=== PATIENT | female | born 1960 | race Two or more races ===

== ENCOUNTER 2023-09-28 03:47 | Inpatient (IN) | payer MEDICAID ==
[~2023-09-28] VITALS: Ht 152.4 cm; Wt 56.8 kg
[2023-09-28 04:41] LABS: BASOPHILS # (AUTO) 0.1 X10'3 (0-0.2); BASOPHILS % (AUTO) 1.1 % (0-1); EOSINOPHILS # (AUTO) 0.1 X10'3 (0-0.9); EOSINOPHILS % (AUTO) 1.2 % (0-6); HEMATOCRIT 28.5 % (35.0-45.0); HEMOGLOBIN 9.3 g/dl (12.0-16.0); LYMPHOCYTES # (AUTO) 1.9 X10'3 (1.1-4.8); LYMPHOCYTES % (AUTO) 22.7 % (21-51); MEAN CORPUSCULAR HGB CONC 32.7 g/dL (33.0-36.5); MEAN CORPUSCULAR VOLUME 85.5 FL (78-98); MEAN PLATELET VOLUME 8.7 FL (7.4-10.4); MONOCYTES # (AUTO) 0.5 X10'3 (0-0.9); MONOCYTES % (AUTO) 5.7 % (2-12); NEUTROPHILS # (AUTO) 5.9 X10'3 (1.8-7.7); NEUTROPHILS % (AUTO) 69.3 % (42-75); PLATELET COUNT 249 X10'3 (140-440); RED BLOOD COUNT 3.33 X10'6 (4.20-5.60); WHITE BLOOD COUNT 8.4 X10'3 (4.5-11.0)
[2023-09-28 04:48] LABS: D-DIMER 4.29 MG/L FEU (0-0.50)
[2023-09-28 04:52] LABS: ALANINE AMINOTRANSFERASE 26 U/L (12-78); ALBUMIN 2.5 G/DL (3.4-5.0); ALBUMIN/GLOBULIN RATIO 0.5 (1.1-1.5); ALKALINE PHOSPHATASE 150 IU/L (46-116); ANION GAP 8 (8-16); ASPARTATE AMINO TRANSFERASE 22 U/L (10-37); BILIRUBIN,TOTAL 0.2 MG/DL (0.1-1.0); BLOOD UREA NITROGEN 29 MG/DL (7-18); BUN/CREATININE RATIO 23.8 (10.0-20.0); CALCIUM 8.5 MG/DL (8.5-10.1); CHLORIDE 107 MMOL/L (99-107); CREATININE 1.22 MG/DL (0.40-0.90); GLUCOSE 155 MG/DL (70-104); POTASSIUM 5.2 MMOL/L (3.5-5.1); SODIUM 139 MMOL/L (135-145); TOTAL CARBON DIOXIDE 24.4 MMOL/L (24-32); TOTAL PROTEIN 7.6 G/DL (6.4-8.2); eCRCL 37 ML/MIN; eGFR 45 ML/MIN
[2023-09-28 04:59] LABS: PRO BRAIN NATRIURETIC PEPTIDE 4151 PG/ML (0-125)
[2023-09-28] MEDS ORDERED: iohexol 350MG/ML 100ml bottle IV ONE (05:42)
[2023-09-28] MEDS: MESSAGE TO NURSING PO ONE (06:55)
[2023-09-28] MEDS: furosemide 10 MG/1 ML 10ml inj IV ONE (10:19)
[2023-09-28] MEDS: aspirin 325mg tablet PO ONE (10:22)
[2023-09-28] MEDS: hydrALAZINE 20mg/ml inj. IV ONE (10:22)
[2023-09-28] MEDS: nitroGLYCERIN 1gm ointment UD TP ONE (10:22)
[2023-09-28] MEDS ORDERED: magnesium 4gm in 100ml NS 100 ML IV PRN (10:50)
[2023-09-28] MEDS ORDERED: magnesium hydroxide 30ml (MOM) UD suspension PO PRN (10:50)
[2023-09-28] MEDS ORDERED: magnesium 2GM in 50ml NS 50 ML IV PRN (10:50)
[2023-09-28] MEDS ORDERED: ondansetron/PF 4mg/2ml inj IV PRN (10:50)
[2023-09-28] MEDS ORDERED: magnesium Cl slow-release 64mg tablet PO PRN (10:50)
[2023-09-28] MEDS ORDERED: potassium Cl 20 mEq SR tablet PO PRN (10:50)
[2023-09-28] MEDS ORDERED: potassium Cl 40MEQ/1/2NS 520ml 520 ML IV PRN (10:50)
[2023-09-28] MEDS ORDERED: mag hydrox/Alum hydrox/simeth 30ml oral suspension PO PRN (10:50)
[2023-09-28] MEDS ORDERED: acetaminophen 325mg tablet PO PRN ×2 (10:50)
[2023-09-28] MEDS ORDERED: hydrALAZINE 20mg/ml inj. IV PRN ×2 (10:55→21:05)
[2023-09-28 11:26] LABS: HEMOGLOBIN A1C 7.9 % (4.5-6.2)
[2023-09-28 14:00] LABS: BILIRUBIN,URINE NEGATIVE (Neg); CLARITY,URINE CLEAR (Clear); COLOR,URINE STRAW (Yellow); GLUCOSE, URINE NEGATIVE (Neg); KETONES,URINE NEGATIVE (Neg); LEUKOCYTE ESTERASE ,URINE NEGATIVE (Neg); NITRITES, URINE NEGATIVE (Neg); OCCULT BLOOD,URINE TRACE-INTACT (Neg); PROTEIN,URINE 30 mg/dl (Neg); UROBILINOGEN,URINE 0.2 E.U/dL (0.2-1.0)
[2023-09-28 14:02] LABS: UA COLLECTION TYPE CLN CATCH MIDSTREAM
[2023-09-28 14:07] LABS: BACTERIA,URINE FEW /HPF (Neg); MUCUS STRANDS NONE SEEN /LPF (Neg); RBC,URINE 0-2 /HPF (0-2); SQUAMOUS EPITHELIAL CELL,UR FEW /LPF (FEW); WBC,URINE NONE SEEN /HPF (0-4)
[2023-09-28] MEDS ORDERED: dextrose 50%-water 50ml dispensing syringe IV PRN ×2 (16:45)
[2023-09-28] MEDS ORDERED: DEXTROSE 15 GM of carb/4 tabs (each vial/BOTTLE has 4 tablets) PO PRN ×2 (16:45)
[2023-09-28] MEDS: MESSAGE TO PHARMACY PO ONE (16:45)
[2023-09-28] MEDS ORDERED: INSULIN LISPRO 100 UNIT/ML INSULN.PEN MULTI-DOSE SQ SCH (16:45)
[2023-09-28] MEDS ORDERED: glucagon, human recombinant 1mg kit SUBCUT PRN (16:45)
[2023-09-28 19:50] VITALS: BP 191/85; PULSE 91; RESP 16; TEMP 98.2; O2SAT 94
[2023-09-28] MEDS: K and/or MAG REPLACEMENT MC SCH (20:00)
[2023-09-28] MEDS ORDERED: HYDR25TA5 PO (20:50)
[2023-09-28] MEDS ORDERED: SITA1TAB6 PO (20:51)
[2023-09-28] MEDS ORDERED: LISI40TA13 PO (20:52)
[2023-09-28] MEDS: insulin glargine (Lantus) pen - multi-dose SQ SCH (21:00)
[2023-09-28 21:15] VITALS: BP 176/82; PULSE 89; O2SAT 97
[2023-09-28] MEDS: furosemide 10 MG/1 ML 10ml inj IV SCH (21:22)
[2023-09-28] MEDS: heparin, porcine 5000 units/ml vial SQ SCH (21:26)
[2023-09-28 22:00] VITALS: BP 136/85; PULSE 88; RESP 16; TEMP 98.7; O2SAT 96
[2023-09-29 06:23] LABS: ALBUMIN 2.2 G/DL (3.4-5.0); ANION GAP 10 (8-16); BLOOD UREA NITROGEN 26 MG/DL (7-18); BUN/CREATININE RATIO 20.6 (10.0-20.0); CALCIUM 8.9 MG/DL (8.5-10.1); CHLORIDE 106 MMOL/L (99-107); CHOL/HDL RATIO 2.4 (0.00-4.99); CHOLESTEROL 168 MG/DL (0-200); CREATININE 1.26 MG/DL (0.40-0.90); GLUCOSE 144 MG/DL (70-104); HDL CHOLESTEROL 70 MG/DL (35-60); LDL CHOLESTEROL 76 MG/DL (50-100); PHOSPHORUS 5.3 MG/DL (2.3-4.5); POTASSIUM 3.8 MMOL/L (3.5-5.1); SODIUM 141 MMOL/L (135-145); TOTAL CARBON DIOXIDE 25.2 MMOL/L (24-32); TRIGLYCERIDES 115 MG/DL (20-135); eCRCL 33 ML/MIN; eGFR 43 ML/MIN
[2023-09-29 06:24] LABS: BASOPHILS # (AUTO) 0.1 X10'3 (0-0.2); EOSINOPHILS # (AUTO) 0.1 X10'3 (0-0.9); EOSINOPHILS % (AUTO) 1.1 % (0-6); HEMATOCRIT 26.9 % (35.0-45.0); HEMOGLOBIN 8.9 g/dl (12.0-16.0); LYMPHOCYTES # (AUTO) 1.6 X10'3 (1.1-4.8); LYMPHOCYTES % (AUTO) 28.2 % (21-51); MEAN CORPUSCULAR HEMOGLOBIN 28.5 PG (27.0-31.0); MEAN CORPUSCULAR HGB CONC 33.1 g/dL (33.0-36.5); MEAN CORPUSCULAR VOLUME 85.8 FL (78-98); MEAN PLATELET VOLUME 8.8 FL (7.4-10.4); MONOCYTES # (AUTO) 0.4 X10'3 (0-0.9); MONOCYTES % (AUTO) 6.9 % (2-12); NEUTROPHILS # (AUTO) 3.6 X10'3 (1.8-7.7); NEUTROPHILS % (AUTO) 62.8 % (42-75); PLATELET COUNT 234 X10'3 (140-440); RED BLOOD COUNT 3.13 X10'6 (4.20-5.60); RED CELL DISTRIBUTION WIDTH 14.7 % (11.5-14.5); WHITE BLOOD COUNT 5.7 X10'3 (4.5-11.0)
[2023-09-29 06:52] VITALS: BP 156/84; PULSE 93; RESP 15; TEMP 98.3; O2SAT 96
[2023-09-29] MEDS ORDERED: hydrALAZINE 20mg/ml inj. IV PRN (07:45)
[2023-09-29] MEDS: HYDROchlorothiazide 25mg tablet PO SCH (08:24)
[2023-09-29] MEDS: lisinopril 20mg tablet PO SCH (08:25)
[2023-09-29] MEDS: cloNIDine 0.1 mg tablet PO ONE (10:58)
[2023-09-29 11:04] VITALS: BP 206/98; PULSE 96; RESP 16; TEMP 98.4; O2SAT 95
[2023-09-29] MEDS: FLU VACC QS2023-24(6MOS UP)/PF 60 MCG/0.5 ML SYRINGE IM ONE (12:54)
[2023-09-29 18:00] VITALS: BP 181/84; PULSE 94; RESP 16; TEMP 98; O2SAT 97
[2023-09-29 20:00] VITALS: BP 140/80; PULSE 85
[2023-09-29 22:00] VITALS: BP 166/76; PULSE 73; RESP 15; TEMP 98; O2SAT 96
[2023-09-30 06:00] VITALS: BP 152/72; PULSE 74; RESP 15; TEMP 98.1; O2SAT 95
[2023-09-30] MEDS: labetalol 100mg tablet PO SCH (07:17)
[2023-09-30 07:46] LABS: BASOPHILS % (AUTO) 0.6 % (0-1); EOSINOPHILS # (AUTO) 0.1 X10'3 (0-0.9); EOSINOPHILS % (AUTO) 1.5 % (0-6); HEMATOCRIT 26.9 % (35.0-45.0); HEMOGLOBIN 9.1 g/dl (12.0-16.0); LYMPHOCYTES # (AUTO) 1.9 X10'3 (1.1-4.8); LYMPHOCYTES % (AUTO) 31.8 % (21-51); MEAN CORPUSCULAR HEMOGLOBIN 28.6 PG (27.0-31.0); MEAN CORPUSCULAR HGB CONC 33.7 g/dL (33.0-36.5); MEAN CORPUSCULAR VOLUME 85.1 FL (78-98); MEAN PLATELET VOLUME 8.7 FL (7.4-10.4); MONOCYTES # (AUTO) 0.6 X10'3 (0-0.9); MONOCYTES % (AUTO) 10.1 % (2-12); NEUTROPHILS # (AUTO) 3.4 X10'3 (1.8-7.7); PLATELET COUNT 236 X10'3 (140-440); RED BLOOD COUNT 3.17 X10'6 (4.20-5.60); RED CELL DISTRIBUTION WIDTH 14.5 % (11.5-14.5); WHITE BLOOD COUNT 6.1 X10'3 (4.5-11.0)
[2023-09-30 08:18] VITALS: RESP 16; O2SAT 98
[2023-09-30 08:20] LABS: ALBUMIN 2.1 G/DL (3.4-5.0); ANION GAP 5 (8-16); BLOOD UREA NITROGEN 22 MG/DL (7-18); BUN/CREATININE RATIO 14.3 (10.0-20.0); CALCIUM 8.2 MG/DL (8.5-10.1); CHLORIDE 101 MMOL/L (99-107); CREATININE 1.54 MG/DL (0.40-0.90); GLUCOSE 102 MG/DL (70-104); PHOSPHORUS 5.5 MG/DL (2.3-4.5); POTASSIUM 3.4 MMOL/L (3.5-5.1); SODIUM 136 MMOL/L (135-145); TOTAL CARBON DIOXIDE 30.4 MMOL/L (24-32); eCRCL 27 ML/MIN; eGFR 34 ML/MIN
[2023-09-30 08:55] VITALS: RESP 18
[2023-09-30 10:00] VITALS: BP 141/61; PULSE 77; RESP 16; TEMP 98; O2SAT 98
[2023-09-30] MEDS: potassium Cl 20 mEq SR tablet PO PRN (10:33)
[2023-09-30 11:20] VITALS: BP 157/71; PULSE 79; RESP 18; O2SAT 95
[2023-09-30] MEDS ORDERED: LABE100T8 PO (11:30)
[2023-09-30] MEDS ORDERED: FURO-150 PO (11:30)
== END 2023-09-30 14:40 | disposition home or self-care (01) | DRG 194 ==
LOC: ER 03:50 → ED HOLD 10:53 → ORTHO 4S 19:35
PROVIDERS: ADMIT Internal Medicine; ATTEND Internal Medicine
DX: I13.0 Hypertensive heart and chronic kidney disease with heart failure and stage 1 through stage 4 chronic kidney disease, or unspecified chronic kidney disease (principal); N17.0 Acute kidney failure with tubular necrosis; I31.39 Other pericardial effusion (noninflammatory); I16.0 Hypertensive urgency; D64.9 Anemia, unspecified; L80 Vitiligo; E11.22 Type 2 diabetes mellitus with diabetic chronic kidney disease; Z79.84 Long term (current) use of oral hypoglycemic drugs; I50.33 Acute on chronic diastolic (congestive) heart failure; N18.30 Chronic kidney disease, stage 3 unspecified; Z79.899 Other long term (current) drug therapy
CPT/HCPCS: 36415; 71045; 71275; 80048; 80053; 80061; 81001; 82948; 83036; 83605; 83735; 83880; 84100; 84484; 85025; 85379; 85651; 86038; 87040; 87081; 90686; 93005; 93306; 96374; 96375; 97161; 97530; 99285; A6212; A6258; G0378; J0360; J1644; J1815; J1940; J3490; Q9967

== ENCOUNTER 2024-03-25 16:58 | Inpatient (IN) | payer MEDICAID ==
[~2024-03-25] VITALS: Ht 152.4 cm; Wt 60.0 kg
[~2024-03-25 16:58] MED LIST: FURO-150 PO; LABE100T8 PO; LISI40TA13 PO; SITA1TAB6 PO
[2024-03-25 18:11] LABS: BASOPHILS # (AUTO) 0.1 X10'3 (0-0.2); BASOPHILS % (AUTO) 1.1 % (0-1); EOSINOPHILS # (AUTO) 0.1 X10'3 (0-0.9); EOSINOPHILS % (AUTO) 1.7 % (0-6); HEMATOCRIT 24.3 % (35.0-45.0); LYMPHOCYTES % (AUTO) 18.9 % (21-51); MEAN CORPUSCULAR HEMOGLOBIN 29.7 PG (27.0-31.0); MEAN CORPUSCULAR HGB CONC 32.9 g/dL (33.0-36.5); MEAN CORPUSCULAR VOLUME 90.2 FL (78-98); MEAN PLATELET VOLUME 8.2 FL (7.4-10.4); MONOCYTES # (AUTO) 0.5 X10'3 (0-0.9); MONOCYTES % (AUTO) 9.6 % (2-12); NEUTROPHILS # (AUTO) 3.7 X10'3 (1.8-7.7); NEUTROPHILS % (AUTO) 68.7 % (42-75); PLATELET COUNT 256 X10'3 (140-440); RED BLOOD COUNT 2.69 X10'6 (4.20-5.60); RED CELL DISTRIBUTION WIDTH 15.3 % (11.5-14.5); WHITE BLOOD COUNT 5.3 X10'3 (4.5-11.0)
[2024-03-25 18:29] LABS: ALANINE AMINOTRANSFERASE 57 U/L (12-78); ALBUMIN/GLOBULIN RATIO 0.6 (1.1-1.5); ALKALINE PHOSPHATASE 242 IU/L (46-116); ANION GAP 11 (8-16); ASPARTATE AMINO TRANSFERASE 30 U/L (10-37); BILIRUBIN,TOTAL 0.3 MG/DL (0.1-1.0); BLOOD UREA NITROGEN 45 MG/DL (7-18); BUN/CREATININE RATIO 17.6 (10.0-20.0); CALCIUM 8.4 MG/DL (8.5-10.1); CHLORIDE 101 MMOL/L (99-107); CREATININE 2.56 MG/DL (0.40-0.90); FREE T4 (FREE THYROXINE) 0.84 NG/DL (0.73-1.40); GLUCOSE 131 MG/DL (70-104); PRO BRAIN NATRIURETIC PEPTIDE 10367 PG/ML (0-125); SODIUM 130 MMOL/L (135-145); THYROID STIMULATING HORMONE 5.87 ulU/ml (0.34-4.50); TOTAL CARBON DIOXIDE 17.7 MMOL/L (24-32); eCRCL 16 ML/MIN; eGFR 19 ML/MIN
[2024-03-25 18:34] LABS: POTASSIUM 6.3 MMOL/L (3.5-5.1)
[2024-03-25 18:36] LABS: APTT 32 SECONDS (22-32); PROTHROMBIN TIME 10.4 SECONDS (9.0-12.0)
[2024-03-25] MEDS: CALCIUM GLUC 1gm/50ml NACL,iso 50 ML IV PRN (20:04)
[2024-03-25] MEDS ORDERED: potassium Cl 40MEQ/1/2NS 520ml 520 ML IV PRN (20:05)
[2024-03-25] MEDS ORDERED: potassium Cl 20 mEq SR tablet PO PRN ×2 (20:05)
[2024-03-25] MEDS ORDERED: magnesium Cl slow-release 64mg tablet PO PRN (20:05)
[2024-03-25] MEDS ORDERED: magnesium hydroxide 30ml (MOM) UD suspension PO PRN (20:05)
[2024-03-25] MEDS ORDERED: magnesium sulf-water 2g/50mL 50 ML IV PRN (20:05)
[2024-03-25] MEDS ORDERED: magnesium sulf-water 4G/100mL 100 ML IV PRN (20:05)
[2024-03-25] MEDS ORDERED: ondansetron/PF 4mg/2ml inj IV PRN (20:05)
[2024-03-25] MEDS ORDERED: acetaminophen 325mg tablet PO PRN (20:05)
[2024-03-25] MEDS ORDERED: mag hydrox/Alum hydrox/simeth 30ml oral suspension PO PRN (20:05)
[2024-03-25] MEDS: normal saline 1000ml 1,000 ML IV ONE ×2 (20:07)
[2024-03-25] MEDS ORDERED: nitroGLYCERIN 0.4mg SUBLingual tab SL PRN (20:20)
[2024-03-25] MEDS ORDERED: aminophylline 250mg/10ml inj. IV PRN (20:20)
[2024-03-25] MEDS ORDERED: metoprolol tartrate 1mg/ml inj IV PRN (20:20)
[2024-03-25 20:25] LABS: MAGNESIUM 2.8 MG/DL (1.5-2.4); PHOSPHORUS 6.2 MG/DL (2.3-4.5)
[2024-03-25 20:37] LABS: HEMOGLOBIN A1C 6.4 % (4.5-6.2)
[2024-03-25] MEDS: dextrose 50%-water 50ml dispensing syringe IV ONE (20:57)
[2024-03-25] MEDS: SODIUM ZIRCONIUM CYCLOSILICATE 10 GM POWD.PACK PO ONE (20:57)
[2024-03-25] MEDS: insulin regular, human 10 units/0.1 ml syringe IV ONE (21:00)
[2024-03-25] MEDS ORDERED: glucagon, human recombinant 1mg kit SUBCUT PRN (21:10)
[2024-03-25] MEDS ORDERED: DEXTROSE 15 GM of carb/4 tabs (each vial/BOTTLE has 4 tablets) PO PRN ×2 (21:10)
[2024-03-25] MEDS ORDERED: dextrose 50%-water 50ml dispensing syringe IV PRN (21:10)
[2024-03-25] MEDS ORDERED: LISI10TA27 PO (21:20)
[2024-03-25 21:35] LABS: BILIRUBIN,URINE NEGATIVE (Neg); CLARITY,URINE CLEAR (Clear); COLOR,URINE YELLOW (Yellow); GLUCOSE, URINE 100 mg/dl (Neg); KETONES,URINE NEGATIVE (Neg); LEUKOCYTE ESTERASE ,URINE NEGATIVE (Neg); NITRITES, URINE NEGATIVE (Neg); OCCULT BLOOD,URINE SMALL (Neg); PH,URINE 5.5 (4.8-8.0); PROTEIN,URINE 100 mg/dl (Neg); UROBILINOGEN,URINE 0.2 E.U/dL (0.2-1.0)
[2024-03-25 21:41] LABS: UA COLLECTION TYPE CLN CATCH MIDSTREAM
[2024-03-25 21:44] LABS: AMORPHOUS URATES 1+; BACTERIA,URINE NONE SEEN /HPF (Neg); MUCUS STRANDS NONE SEEN /LPF (Neg); SQUAMOUS EPITHELIAL CELL,UR NONE SEEN /LPF (FEW); WBC,URINE 0-4 /HPF (0-4)
[2024-03-25 21:49] LABS: TOTAL PROTEIN,URINE RANDOM 305.4 MG/DL
[2024-03-25 21:54] LABS: OXYGEN SATURATION (MIXED VEN) 88.5 % (60-80); PO2 MIXED VENOUS (TEMP COR) 57.9 mmHg (35-46)
[2024-03-25] MEDS: aspirin 325mg tablet PO ONE (22:41)
[2024-03-25] MEDS: furosemide 10 MG/1 ML 10ml inj IV ONE (22:44)
[2024-03-25] MEDS: dextrose 50%-water 50ml dispensing syringe IV PRN (22:59)
[2024-03-25] MEDS: diltiazem-NS 100mg/100ml 100 ML IV SCH (23:40)
[2024-03-25] MEDS: niCARDipine-NS 40mg/200ml IVPB 200 ML IV SCH (23:40)
[2024-03-25 23:43] LABS: ALBUMIN 2.8 G/DL (3.4-5.0); ANION GAP 11 (8-16); BLOOD UREA NITROGEN 42 MG/DL (7-18); CALCIUM 8.7 MG/DL (8.5-10.1); CHLORIDE 103 MMOL/L (99-107); CREATININE 2.47 MG/DL (0.40-0.90); GLUCOSE 113 MG/DL (70-104); SODIUM 132 MMOL/L (135-145); TOTAL CARBON DIOXIDE 17.8 MMOL/L (24-32); eCRCL 17 ML/MIN; eGFR 20 ML/MIN
[2024-03-25] MEDS: lisinopril 10 MG tablet PO ONE (23:47)
[2024-03-26] VITALS (14 sets, daily range): BP systolic 133–167; BP diastolic 51–81; PULSE 58–72; RESP 14–18; TEMP 97.1–98.4; O2SAT 94–100
[2024-03-26] MEDS: amLODIPine 5mg tablet PO ONE (00:11)
[2024-03-26] MEDS: labetalol 100mg tablet PO ONE (00:11)
[2024-03-26] MEDS: heparin, porcine 5000 units/ml vial SQ SCH (00:51)
[2024-03-26 02:43] LABS: BASOPHILS % (AUTO) 0.9 % (0-1); EOSINOPHILS # (AUTO) 0.1 X10'3 (0-0.9); EOSINOPHILS % (AUTO) 1.1 % (0-6); LYMPHOCYTES # (AUTO) 0.7 X10'3 (1.1-4.8); LYMPHOCYTES % (AUTO) 14.9 % (21-51); MEAN CORPUSCULAR HGB CONC 32.3 g/dL (33.0-36.5); MEAN CORPUSCULAR VOLUME 89.9 FL (78-98); MEAN PLATELET VOLUME 7.9 FL (7.4-10.4); MONOCYTES # (AUTO) 0.3 X10'3 (0-0.9); MONOCYTES % (AUTO) 7.1 % (2-12); NEUTROPHILS # (AUTO) 3.7 X10'3 (1.8-7.7); PLATELET COUNT 234 X10'3 (140-440); RED BLOOD COUNT 2.42 X10'6 (4.20-5.60); RED CELL DISTRIBUTION WIDTH 15.3 % (11.5-14.5); WHITE BLOOD COUNT 4.9 X10'3 (4.5-11.0)
[2024-03-26 02:48] LABS: HEMATOCRIT 21.8 % (35.0-45.0)
[2024-03-26 03:00] LABS: ALANINE AMINOTRANSFERASE 47 U/L (12-78); ALBUMIN 2.6 G/DL (3.4-5.0); ALBUMIN/GLOBULIN RATIO 0.6 (1.1-1.5); ALKALINE PHOSPHATASE 208 IU/L (46-116); ANION GAP 9 (8-16); ASPARTATE AMINO TRANSFERASE 25 U/L (10-37); BILIRUBIN,TOTAL 0.3 MG/DL (0.1-1.0); BLOOD UREA NITROGEN 43 MG/DL (7-18); BUN/CREATININE RATIO 17.6 (10.0-20.0); CALCIUM 8.3 MG/DL (8.5-10.1); CHLORIDE 104 MMOL/L (99-107); CHOL/HDL RATIO 2.1 (0.00-4.99); CHOLESTEROL 155 MG/DL (0-200); CREATININE 2.45 MG/DL (0.40-0.90); GLUCOSE 178 MG/DL (70-104); HDL CHOLESTEROL 74 MG/DL (35-60); LDL CHOLESTEROL 62 MG/DL (50-100); POTASSIUM 5.1 MMOL/L (3.5-5.1); SODIUM 132 MMOL/L (135-145); TOTAL CARBON DIOXIDE 18.9 MMOL/L (24-32); TRIGLYCERIDES 68 MG/DL (20-135); eCRCL 17 ML/MIN; eGFR 20 ML/MIN
[2024-03-26] MEDS ORDERED: LABE100T8 PO (05:28)
[2024-03-26] MEDS ORDERED: SITA50TA PO (05:28)
[2024-03-26] MEDS ORDERED: AMLO2.5T2 PO (05:29)
[2024-03-26] MEDS: INSULIN LISPRO 100 UNIT/ML INSULN.PEN MULTI-DOSE SQ SCH (07:00)
[2024-03-26] MEDS: labetalol 100mg tablet PO SCH (08:00)
[2024-03-26] MEDS: K and/or MAG REPLACEMENT MC SCH (08:00)
[2024-03-26] MEDS: furosemide 10 MG/1 ML 10ml inj IV ONE (08:00)
[2024-03-26] MEDS: atorvastatin 20mg tablet PO SCH (08:00)
[2024-03-26] MEDS ORDERED: non-formulary drug (Lisinopril* 1 TAB) PO SCH (08:00)
[2024-03-26] MEDS: aspirin 81mg tab.chew PO SCH (08:30)
[2024-03-26 09:07] LABS: HEMATOCRIT 22.1 % (35.0-45.0); HEMOGLOBIN 7.2 g/dl (12.0-16.0); MEAN CORPUSCULAR HEMOGLOBIN 29.1 PG (27.0-31.0); MEAN CORPUSCULAR HGB CONC 32.5 g/dL (33.0-36.5); MEAN CORPUSCULAR VOLUME 89.7 FL (78-98); MEAN PLATELET VOLUME 7.8 FL (7.4-10.4); PLATELET COUNT 230 X10'3 (140-440); RED BLOOD COUNT 2.46 X10'6 (4.20-5.60); RED CELL DISTRIBUTION WIDTH 15.6 % (11.5-14.5); WHITE BLOOD COUNT 4.4 X10'3 (4.5-11.0)
[2024-03-26] MEDS: regadenoson 0.4mg/5ml syringe IV PRN (11:23)
[2024-03-26 14:52] LABS: FERRITIN 96 NG/ML (8-252)
[2024-03-26 15:12] LABS: % IRON SATURATION 12 % (11-46); IRON 40 UG/DL (49-151); TOTAL IRON BINDING CAPACITY 343 UG/DL (259-388)
[2024-03-26] MEDS: furosemide 20 MG/2 ML vial IV SCH (20:47)
[2024-03-27 02:00] VITALS: BP 171/69; PULSE 67; RESP 16; TEMP 97.3; O2SAT 97
[2024-03-27] MEDS: amLODIPine 5mg tablet PO ONE (02:55)
[2024-03-27 07:00] VITALS: BP 156/62; PULSE 70; RESP 10; TEMP 97.7; O2SAT 94
[2024-03-27 08:00] VITALS: RESP 16; O2SAT 94
[2024-03-27 08:34] LABS: BASOPHILS # (AUTO) 0.1 X10'3 (0-0.2); BASOPHILS % (AUTO) 1.2 % (0-1); EOSINOPHILS # (AUTO) 0.2 X10'3 (0-0.9); EOSINOPHILS % (AUTO) 3.2 % (0-6); HEMOGLOBIN 7.3 g/dl (12.0-16.0); MEAN CORPUSCULAR HGB CONC 33.5 g/dL (33.0-36.5); MEAN CORPUSCULAR VOLUME 89.6 FL (78-98); MEAN PLATELET VOLUME 8.3 FL (7.4-10.4); MONOCYTES # (AUTO) 0.4 X10'3 (0-0.9); MONOCYTES % (AUTO) 8.1 % (2-12); NEUTROPHILS # (AUTO) 3.2 X10'3 (1.8-7.7); NEUTROPHILS % (AUTO) 66.5 % (42-75); PLATELET COUNT 241 X10'3 (140-440); RED BLOOD COUNT 2.44 X10'6 (4.20-5.60); RED CELL DISTRIBUTION WIDTH 15.3 % (11.5-14.5); WHITE BLOOD COUNT 4.9 X10'3 (4.5-11.0)
[2024-03-27 08:50] LABS: ALANINE AMINOTRANSFERASE 40 U/L (12-78); ALBUMIN 2.4 G/DL (3.4-5.0); ALBUMIN/GLOBULIN RATIO 0.6 (1.1-1.5); ALKALINE PHOSPHATASE 177 IU/L (46-116); ANION GAP 10 (8-16); ASPARTATE AMINO TRANSFERASE 18 U/L (10-37); BILIRUBIN,TOTAL 0.3 MG/DL (0.1-1.0); BLOOD UREA NITROGEN 40 MG/DL (7-18); BUN/CREATININE RATIO 17.9 (10.0-20.0); CALCIUM 8.3 MG/DL (8.5-10.1); CHLORIDE 106 MMOL/L (99-107); CREATININE 2.23 MG/DL (0.40-0.90); GLUCOSE 87 MG/DL (70-104); POTASSIUM 4.7 MMOL/L (3.5-5.1); SODIUM 136 MMOL/L (135-145); TOTAL PROTEIN 6.7 G/DL (6.4-8.2); eCRCL 19 ML/MIN; eGFR 22 ML/MIN
[2024-03-27 08:51] LABS: HEMATOCRIT 21.8 % (35.0-45.0)
[2024-03-27 11:47] VITALS: BP 149/64; PULSE 78; RESP 18; TEMP 98; O2SAT 97
[2024-03-27] MEDS ORDERED: FERR324T4 PO ×2 (12:01→12:12)
== END 2024-03-27 13:18 | disposition home or self-care (01) | DRG 194 ==
LOC: ER 16:58 → ED HOLD 21:16 → PCU 3S 03-26 08:39
PROVIDERS: ADMIT Internal Medicine Critical Care Medicine; ATTEND Internal Medicine
PROC: 4A02XM4 Measurement of Cardiac Total Activity, External Approach (ICD-10-PCS; principal; 2024-03-26)
PROC: 3E033HZ Introduction of Radioactive Substance into Peripheral Vein, Percutaneous Approach (ICD-10-PCS; 2024-03-26)
DX: I13.0 Hypertensive heart and chronic kidney disease with heart failure and stage 1 through stage 4 chronic kidney disease, or unspecified chronic kidney disease (principal); J96.01 Acute respiratory failure with hypoxia; E87.20 Acidosis, unspecified; I27.20 Pulmonary hypertension, unspecified; E11.22 Type 2 diabetes mellitus with diabetic chronic kidney disease; D64.9 Anemia, unspecified; I50.33 Acute on chronic diastolic (congestive) heart failure; N17.9 Acute kidney failure, unspecified; E87.5 Hyperkalemia; I20.9 Angina pectoris, unspecified; I34.0 Nonrheumatic mitral (valve) insufficiency; M54.9 Dorsalgia, unspecified; I20.89 Other forms of angina pectoris; N18.2 Chronic kidney disease, stage 2 (mild); Z79.899 Other long term (current) drug therapy
CPT/HCPCS: 36415; 71045; 71250; 76770; 78452; 80048; 80053; 80061; 81001; 82728; 82810; 82948; 83036; 83540; 83550; 83735; 83880; 83935; 84100; 84156; 84300; 84439; 84443; 84466; 84484; 85025; 85027; 85379; 85610; 85730; 86256; 87081; 93005; 93017; 93306; 96365; 96375; 99285; A4615; A9500; G0378; J0610; J1644; J1815; J1940; J2785; J3490; J7030